=== PATIENT | male | born 1960 | race Caucasian/White ===

== ENCOUNTER → 2017-03-13 | Outpatient (CLI) | payer OTHER | LOC: BRMIMAGING 08:28 | PROVIDERS: ATTEND Physician Assistant | DX: S67.41XA Crushing injury of right wrist and hand, initial encounter (principal); M18.11 Unilateral primary osteoarthritis of first carpometacarpal joint, right hand; Y99.0 Civilian activity done for income or pay | CPT/HCPCS: 73110-PO; 73130-PO ==

== ENCOUNTER → 2017-03-24 | Outpatient (CLI) | payer OTHER | LOC: BRMIMAGING 09:33 | PROVIDERS: ATTEND Internal Medicine | DX: S69.81XA Other specified injuries of right wrist, hand and finger(s), initial encounter (principal) | CPT/HCPCS: 73110-PO; 73130-PO ==